=== PATIENT | female | born 1985 | race Hispanic/Latino ===

== ENCOUNTER 2024-01-14 11:44 | Emergency (ER) | payer OTHER ==
[~2024-01-14] VITALS: Ht 165.1 cm; Wt 97.0 kg
[2024-01-14] MEDS ORDERED: IBUPROFEN 600 MG TAB PO ONE (12:15)
[2024-01-14] MEDS ORDERED: BENZONATATE 100 MG CAP PO ONE (12:15)
[2024-01-14] MEDS ORDERED: AMOXICILLIN500 M1 PO (13:23)
[2024-01-14] MEDS ORDERED: BENZONATATE100 MG PO (13:23)
[2024-01-14 13:34] VITALS: BP 136/105
== END 2024-01-14 13:34 | disposition home or self-care (01) ==
LOC: ED 11:44
DX: J40 Bronchitis, not specified as acute or chronic (principal)
CPT/HCPCS: 71046; 99283-25; A9270